=== PATIENT | female | born 1950 | race Caucasian/White ===

== ENCOUNTER → 2018-11-14 | Outpatient (REF) | payer MEDICARE ==
[~2018-11-14] MED LIST: BENZONATATE200 MG PO; DOXYCYCL HYC100 MG PO; FLEXERIL10 MG PO; FUROSEMIDE40 MG PO; HUMALOG 751000 UNITS; HUMULIN N1 ML SC; LOVASTATIN20 M1 PO; METFORMIN850 MG PO; MITIGARE0.6 MG PO; MUCINEX600 MG PO; MULTI 50+ PO; NAPROXEN500 MG PO; PREDNISONE10 MG PO; PREDNISONE20 MG PO; ZITHROMAX500 MG PO; [UNRECOGNIZED DRUG - OTHER]; [UNRECOGNIZED DRUG - OTHER] OR
== END | disposition home or self-care (01) ==
LOC: CT 09-17 14:00
PROVIDERS: ATTEND Internal Medicine Pulmonary Disease
DX: R59.0 Localized enlarged lymph nodes (principal)
CPT/HCPCS: Q9967